=== PATIENT | female | born 1950 | race Caucasian/White ===

== ENCOUNTER → 2021-01-05 | Outpatient (CLI) | payer OTHER ==
[~2021-01-05] MED LIST: CYCLOBENZAPRINE10 MG PO; CYCLOBENZAPRINE5 MG PO; DESYREL50 MG PO; DIAZEPAM 5 MG5 M1 PO; HYDROCODON-ACE1 EAC8 PO; HYDROCODON-ACE1 EACH; KEFLEX125 MG/5 M PO; LOVASTAT40 PO; NEURONTIN 300300 M1 PO; NEURONTIN 300M300 M2 PO; OXYCODONE PO; PERCOCET 7.5-31 EACH PO; PROPRANOLOL 20M20 M1 PO
== END ==
LOC: M.ULTRA 12:00
PROVIDERS: ATTEND Physician Assistant
DX: R22.41 Localized swelling, mass and lump, right lower limb (principal); R23.8 Other skin changes